=== PATIENT | female | born 1985 | race Caucasian/White ===

== ENCOUNTER 2024-03-01 16:57 | Emergency (ER) | payer MEDICAID, SELFPAY ==
[2024-03-01 16:58] VITALS: BMI 23.8
[2024-03-01 17:05] VITALS: BP 136/88; PULSE 79; RESP 18; TEMP 36.8; O2SAT 99
--- NOTE | 2024-03-01 17:13 | XR_ITS ---
Examination: Left elbow 3 views Technique: Elbow AP, oblique, lateral 3 views Exam date and time: February 22, 2024 1732 hrs. Indications: Injury to the elbow today with elbow pain Findings: Old resection radial head Advanced osteoarthritis elbow joints No fracture Impression: Advanced osteoarthritis, no acute fracture.
--- NOTE | 2024-03-01 17:13 | PD.EDRME ---
Rapid Medical Screening Exam RME Arrival date/time: 03/01/24 16:57 38-year-old female presents emergency department complaints of inability move her left elbow patient reports 2 surgical procedures to the elbow. Chief Complaint: Extremity Injury, Upper Time Seen by Provider: 03/01/24 17:08 Vital signs: Vital Signs Temperature 98.2 F 03/01/24 17:05 Pulse Rate 79 03/01/24 17:05 Respiratory Rate 18 03/01/24 17:05 Blood Pressure 136/88 H 03/01/24 17:05 Pulse Oximetry (%) 99 03/01/24 17:05 Oxygen Delivery Method Room Air 03/01/24 17:05
[2024-03-01] MEDS: HYDROcodone/APAP 5/325 TABLET 1 TAB PO (18:02)
[2024-03-01 18:27] VITALS: BP 100/86; PULSE 85; RESP 19; O2SAT 100
--- NOTE | 2024-03-01 18:31 | EDNOTE_ITS ---
Upper Extremity Injury RME/HPI General Chief Complaint: Extremity Injury, Upper Stated Complaint: LEFT ELBOW PAIN/SWELLING, UNABLE TO MOVE AT ALL Time Seen by Provider: 03/01/24 17:08 Arrival date/time: 03/01/24 16:57 RME / HPI RME / HPI narrative: 38-year-old female patient came in for evaluation regarding left elbow pain. Patient woke up this morning as sudden onset of left elbow pain, associated with limitation of range of motion. Patient had a radial head prosthesis surgery that was eventually removed several years ago. Patient told me that he has been having limited range of motion of the elbow however this morning he got worse. Patient denies any fever. Denies any redness. Denies any swelling. Denies any chills. Denies any other complaints. No medication was taken prior to arrival. Related Data Previous Rx's ?Medication ?Instructions ?Recorded cyclobenzaprine 10 mg tablet 10 mg PO TID PRN muscle spasm #14 10/09/17 tabs ibuprofen 400 mg tablet 400 mg PO QID PRN inflammation #20 10/09/17 tabs naproxen 500 mg tablet 500 mg PO BID PRN pain #30 tabs 10/07/20 cyclobenzaprine 10 mg tablet 10 mg PO TID PRN muscle spasm #30 03/01/24 tabs ibuprofen 600 mg tablet 600 mg PO TID PRN pain #30 tabs 03/01/24 ketorolac 10 mg tablet 10 mg PO TID PRN pain 4 days #20 03/01/24 tabs Allergies Allergy/AdvReac Type Severity Reaction Status Date / Time No Known Allergies Allergy Verified 03/01/24 17:00 Review of Systems Review of Systems Narrative Review of Systems: Review of system reviewed and within normal limits except mentioned in HPI ED Exam Narrative Physical exam: VITAL SIGNS: Reviewed. GENERAL APPEARANCE: Alert and interactive, follows commands, no acute distress, HEAD AND FACE: Non-traumatic. ENT: PERRL, pink conjunctivitis, eyelid no trauma, Mucous membrane moist. GENITAL: Deferred. NEUROLOGICAL: Gross motor function intact sensory function intact, Appropriate for age. MUSCULOSKELETAL: low back nontender, full range of motion. EXTREMITIES: Left elbow tenderness, no swelling no redness with limitation range of motion. Distal neurovascular status intact the left upper extremity SKIN: Color pink, dry, no rash, no lacerations, no abrasions, no contusions. LYMPHATICS: Deferred. Course Quality Measures none Orders Category Date Time Status XR elbow comp LT min 3V Stat Exams 03/01/24 17:13 Completed HYDROcodone*/APAP 5/325 [[place] 5/325] Med 03/01/24 17:13 Discontinued 1 tab PO X1 ONE Ketorolac Inj [Toradol Inj] Med 03/01/24 18:31 Once 30 mg IM X1 ONE Vital Signs Vital signs: Vital Signs Temperature 98.2 F 03/01/24 17:05 Pulse Rate 79 03/01/24 17:05 Respiratory Rate 18 03/01/24 17:05 Blood Pressure 136/88 H 03/01/24 17:05 Pulse Oximetry (%) 99 03/01/24 17:05 Oxygen Delivery Method Room Air 03/01/24 17:05 Extremity Injury MDM Narrative MDM Narrative:: 38-year-old female patient came in for evaluation regarding left elbow pain. Patient woke up this morning as sudden onset of left elbow pain, associated with limitation of range of motion. Patient had a radial head prosthesis surgery that was eventually removed several years ago. Patient told me that he has been having limited range of motion of the elbow however this morning he got worse. Patient denies any fever. Denies any redness. Denies any swelling. Denies any chills. Denies any other complaints. No medication was taken prior to arrival. X-ray of the left elbow showed severe osteoarthritis of the elbow joints, radial head is gone, otherwise unremarkable. Patient was placed on a arm sling. Plan of care discussed with the patient and her daughter regarding follow-up closely with orthopedic surgeon for [facility] who did the radial head prosthesis replacement. Patient was also advised to watch closely the elbow joints for developing fever, redness, and swelling. Patient agrees with the plan. At this time I did not notice any sign of infection patient is not having any fever no redness no swelling not tachycardic. Patient data External records reviewed:: None Clinical information provided by:: patient and family Social determinants that could affect healthcare access:: none Patient has the following chronic illnesses:: Previous radial head prosthesis placement left elbow and removal of prosthesis eventually. How is presenting disease/condition affected by chronic disease/condition?: exacerbated by Evaluation data The following diagnostics were reviewed and interpreted by me:: radiology exam(s) Lab and/or radiology exams considered but not ordered:: None Interpretation Summary: X-ray of the left elbow showed Advanced osteoarthritis, no acute fracture. Medications / Prescriptions Medications or Prescriptions considered but not ordered:: None Medication administrations:: Medication Administration History Discontinued Medications Hydrocodone Bitart/Acetaminophen (Hydrocodone/[place] 5/325 Tablet) 1 tab PO X1 ONE Stop: 03/01/24 17:14 Last Admin: 03/01/24 18:02 Dose: 1 tab Documented By: MADDY Villela and Toradol Consultations Consultation(s) initiated? (list below): No Diagnosis Upper Extremity Injury Differential Diagnosis: other (Osteoarthritis elbow joints, elbow fracture, elbow sprain) Most likely diagnosis given after review of the tests above:: Osteoarthritis elbow joints Admission Indicated Admission indicated?: not indicated Explain why admission is indicated or not indicated:: Stable Admission Request Was there a request for admission?: No Disposition Plan Disposition Plan: Discharge Discharge Attestation Discharge Attestation: The patient and all family members were given an opportunity to ask questions and understood the discharge instructions. Discharge instructions specifically effects, indications for sooner follow up or return to the emergency department, and the expected course of current diagnosis. Patient condition: Stable Discharge Plan Plan Patient Disposition: HOME (Self Care) Disposition Comment: Stable Prescriptions/Referrals Prescriptions/Med Rec: New ketorolac 10 mg tablet 10 mg PO TID PRN (Reason: pain) 4 Days Qty: 20 0RF cyclobenzaprine 10 mg tablet 10 mg PO TID PRN (Reason: muscle spasm) Qty: 30 0RF ibuprofen 600 mg tablet 600 mg PO TID PRN (Reason: pain) Qty: 30 0RF No Action cyclobenzaprine 10 mg tablet 10 mg PO TID PRN (Reason: muscle spasm) Qty: 14 0RF ibuprofen 400 mg tablet 400 mg PO QID PRN (Reason: inflammation) Qty: 20 0RF naproxen 500 mg tablet 500 mg PO BID PRN (Reason: pain) Qty: 30 0RF Problem List Clinical Impression: Osteoarthritis of left elbow Patient/Caregiver Discharge Instructions Discharge Activity: activity as tolerated Education Materials: ED Osteoarthritis Additional Instructions: Thank you for the opportunity for serving you today. You are stable for discharged . You are advised to: Follow-up with your PCP in 1 to 2 days and asked for referral to orthopedic surgeon who did your elbow surgery Return to ED for worsening of symptoms Increase oral fluids Take medication as prescribed Wear your arm sling as needed and do range of motion of your elbow as tolerated Print Language: Kazakh Stand Alone Forms: Jolanta Award Info., Patient Portal Info Letter PA/TENT FINISHER Supervising Physician STEPHON/CAORLE Supervising Physician: MD Kulwinder
[2024-03-01] MEDS: KETOROLAC INJ 60 MG/2 ML VIAL 30 MG IM (18:46)
== END 2024-03-01 19:06 | disposition home or self-care (01) ==
LOC: SERX 19:03
PROVIDERS: Emergency Provider Emergency Medicine
DX: M19.022 Primary osteoarthritis, left elbow (principal)
CPT/HCPCS: 73080; 96372; 99283; J1885; A9270